=== PATIENT | male | born 1930 | race Caucasian/White ===

== ENCOUNTER 2016-05-11 13:52 | Outpatient (CLI) | payer MEDICARE ==
--- NOTE | 2016-05-12 07:30 | RAD ---
TWO VIEWS CHEST 05/11/16 HISTORY: Density seen on port, J18.9. PA and lateral views of the chest obtained on 05/11/16. Comparison made to a previous exam from 04/12/16. Two views chest demonstrate intracardiac pacing device. Bilateral pleural effusions and costophrenic angle blunting is seen. No significant interval change is seen since the previous exam from [facility] one month earlier. IMPRESSION: Stable bilateral pleural effusions. No significant interval change is noted. POS: [facility]
== END 2016-05-11 13:53 | disposition home or self-care (01) ==
LOC: BURRAD 13:52
PROVIDERS: ATTEND Clinical Nurse Specialist Medical-Surgical
DX: J18.9 Pneumonia, unspecified organism (principal); J90 Pleural effusion, not elsewhere classified
CPT/HCPCS: 71020